=== PATIENT | female | born 1950 | race Asian ===

== ENCOUNTER 2019-03-08 18:11 | Emergency (ER) | payer OTHER ==
[~2019-03-08] VITALS: Ht 167.6 cm; Wt 62.6 kg
[2019-03-08 19:07] LABS: PLATELET COUNT 332 K/uL (152-353)
[2019-03-08 19:22] LABS: POTASSIUM 4.3 mmol/L (3.6-5.2)
[2019-03-08 20:18] VITALS: BP 180/80; TEMP 98
[2019-03-08] MEDS ORDERED: ARIPIPRAZOLE15 MG PO (21:34)
[2019-03-08] MEDS ORDERED: ATEN25TA21 PO (21:36)
[2019-03-08] MEDS ORDERED: DECUBI-VITE PO (21:38)
[2019-03-08] MEDS ORDERED: LISI10TA11 PO (21:39)
[2019-03-08] MEDS ORDERED: ZIPRASIDONE HYD40 MG PO (21:40)
[2019-03-08] MEDS ORDERED: METFORMIN HYDR850 MG PO (21:42)
[2019-03-08] MEDS ORDERED: NOVOLOG FL100 UNIT/M SC (21:50)
[2019-03-08] MEDS ORDERED: TYLENOL325 MG PO (21:51)
[2019-03-16] MEDS ORDERED: ABILIFY 10MG TAB PO (11:01)
[2019-03-16] MEDS ORDERED: ATOR20TA2 PO (11:03)
[2019-03-16] MEDS ORDERED: CHOL100034 PO (11:04)
[2019-03-16] MEDS ORDERED: LAMO100T PO (11:06)
[2019-03-16] MEDS ORDERED: MAGNSUS68 PO (11:07)
[2019-03-16] MEDS ORDERED: MAGN400T4 PO (11:07)
[2019-03-16] MEDS ORDERED: ZIPR80CA PO (11:08)
== END 2019-03-08 20:18 | disposition other institution (70) ==
LOC: ED 18:11
PROVIDERS: Emergency Medicine
DX: F28 Other psychotic disorder not due to a substance or known physiological condition (principal); F20.89 Other schizophrenia; Z04.6 Encounter for general psychiatric examination, requested by authority
CPT/HCPCS: 80053; 85027; 93005; 99285